=== PATIENT | female | born 1970 | race Caucasian/White ===

== ENCOUNTER 2016-08-09 09:29 | Emergency (ER) | payer SELFPAY ==
[~2016-08-09] VITALS: Ht 175.3 cm; Wt 66.4 kg
[2016-08-09 09:32] VITALS: BP 115/79; PULSE 78; RESP 15; TEMP 98.2; O2SAT 98
--- NOTE | 2016-08-09 09:56 | PD ---
HPI Chief Complaint: Flank/Kidney Pain Time Seen by Provider: 09:47 Travel History International Travel<30 days: No Contact w/Intl Traveler<30days: No Traveled to known affect area: No History of Present Illness HPI This is a 46-year-old female who presents to the emergency department with left- sided flank pain that's been present for 3 days associated with fevers and chills, constant, moderate severity. She also reports she's been waking up in the middle the night to use the bathroom and she feels like she has to go to the bathroom but doesn't produce much urine. She denies any nausea or vomiting. She's never had symptoms like this before. She is otherwise healthy. She does have a history of fibroids and thought it might be related to that. PFSH Past Medical History Medical History: Denies Significant Hx LMP: YESTERDAY. Social History Alcohol Use: Yes (2 drinks/day) Tobacco Use: Yes Substance Use: No Allergies-Medications (Allergen,Severity, Reaction): Coded Allergies: No Known Allergies (Unverified , 08/09/16) Reported Meds & Prescriptions Reported Meds & Active Scripts Active No Active Prescriptions or Reported Medications Review of Systems Except as stated in HPI: all other systems reviewed are Neg Physical Exam Narrative GENERAL:Well appearing, no acute distress SKIN: Focused skin assessment warm and dry. HEAD: Atraumatic. Normocephalic. EYES: Pupils equal and round. No injection or drainage. ENT: Moist mucous membranes NECK: Trachea midline. CARDIOVASCULAR: Regular rate and rhythm. No murmur appreciated. RESPIRATORY: Clear to auscultation. Breath sounds equal bilaterally. GASTROINTESTINAL: Abdomen soft, non-tender, tender to palpation in the left lower quadrant : Left CVA tenderness MUSCULOSKELETAL: No obvious deformities. NEUROLOGICAL: Awake and alert. No obvious cranial nerve deficits. Moving all extremities. PSYCHIATRIC: Appropriate mood and affect; insight and judgment normal. Data Data Last Documented VS Vital Signs Date Time Temp Pulse Resp B/P Pulse Ox O2 Delivery O2 Flow Rate FiO2 08/09/16 09:32 98.2 78 15 115/79 98 Orders Urinalysis - C+S If Indicated (08/09/16 09:35) Ed Urine Pregnancytest Poc (08/09/16 09:35) Complete Blood Count With Diff (08/09/16 09:47) Comprehensive Metabolic Panel (08/09/16 09:47) ^ Insert Iv (08/09/16 09:47) Sodium Chlor 0.9% 1000 Ml Inj (Ns 1000 M (08/09/16 10:00) Ciprofloxacin 400 Mg Premix (Cipro 400 M (08/09/16 10:30) Urine Culture (08/09/16 09:35) Labs Laboratory Tests Test 08/09/16 08/09/16 09:35 09:40 Urine Collection Type CLEAN CATCH Urine Color YELLOW Urine Turbidity MOD Urine pH 6.0 Urine Specific [place] 1.024 Urine Protein 100 mg/dL Urine Glucose (UA) NEG mg/dL Urine Ketones TRACE mg/dL Urine Occult Blood MOD Urine Nitrite NEG Urine Bilirubin NEG Urine Leukocyte Esterase LARGE Urine RBC 20-24 /hpf Urine WBC INNUM /hpf Urine WBC Clumps MANY Urine Squamous Epithelial 0-5 /hpf Cells Urine Bacteria FEW /hpf Microscopic Urinalysis Comment CULTURE INDICATED Urine Collection Time 09:35 White Blood Count 8.0 TH/MM3 Red Blood Count 4.15 MIL/MM3 Hemoglobin 13.1 GM/DL Hematocrit 38.9 % Mean Corpuscular Volume 93.9 FL Mean Corpuscular Hemoglobin 31.5 PG Mean Corpuscular Hemoglobin 33.5 % Concent Red Cell Distribution Width 13.9 % Platelet Count 206 TH/MM3 Mean Platelet Volume 8.4 FL Neutrophils (%) (Auto) 76.6 % Lymphocytes (%) (Auto) 10.9 % Monocytes (%) (Auto) 11.2 % Eosinophils (%) (Auto) 0.6 % Basophils (%) (Auto) 0.7 % Neutrophils # (Auto) 6.1 TH/MM3 Lymphocytes # (Auto) 0.9 TH/MM3 Monocytes # (Auto) 0.9 TH/MM3 Eosinophils # (Auto) 0.0 TH/MM3 Basophils # (Auto) 0.1 TH/MM3 CBC Comment DIFF FINAL Differential Comment Sodium Level 138 MEQ/L Potassium Level 3.7 MEQ/L Chloride Level 103 MEQ/L Carbon Dioxide Level 25.1 MEQ/L Anion Gap 10 MEQ/L Blood Urea Nitrogen 9 MG/DL Creatinine 0.99 MG/DL Estimat Glomerular Filtration 60 ML/MIN Rate Random Glucose 124 MG/DL Calcium Level 9.0 MG/DL Total Bilirubin 0.5 MG/DL Aspartate Amino Transf 11 U/L (AST/SGOT) Alanine Aminotransferase 16 U/L (ALT/SGPT) Alkaline Phosphatase 97 U/L Total Protein 7.7 GM/DL Albumin 3.1 GM/DL MDM Medical Decision Making Medical Screen Exam Complete: Yes Emergency Medical Condition: Yes Interpretation(s) Afebrile, no tachycardia, normotensive No leukocytosis Urinary tract infection Differential Diagnosis Pyelonephritis, urinary tract infection, nephrolithiasis Narrative Course This is a 46-year-old female who presents to the emergency department with left- sided flank pain, fevers and chills classic for pyelonephritis. Labs were obtained which demonstrated normal white blood cell count. She does have a urinary tract infection. She was given a dose of IV ciprofloxacin and will be discharged on Cipro. She doesn't have any insurance I tried to choose an antibiotic that she could afford. She is nontoxic appearing and appropriate for outpatient therapy. Diagnosis Primary Impression: Pyelonephritis Patient Instructions: General Instructions Additional Instructions: If you develop fever, persistent vomiting, back pain, or inability to eat return to the emergency department as your urine infection may have progressed to a kidney infection. Complete your antibiotics as prescribed. Stay well hydrated with Gatorade or water. Followup with your primary care physician in 2-3 days if your symptoms have not resolved. Med/Other Pt SpecificInfo: Prescription(s) given Scripts Ciprofloxacin 500 Mg [id number] Mg PO BID 7 Days Prov:Tracey Vasquez MD 08/09/16 Disposition: 01 DISCHARGE HOME Condition: Stable Tracey Vasquez MD August 09, 2016 09:56
[2016-08-09] MEDS ORDERED: SODIUM CHLOR 0.9% 1000 ML INJ 1,000 ML IV ONE (10:00)
[2016-08-09 10:05] LABS: BLOOD, URINE MOD (NEG); GLUCOSE,URINE NEG (NEG); KETONE, URINE TRACE mg/dL (NEG); NITRITE,URINE NEG (NEG)
[2016-08-09 10:08] LABS: AUTOMATED NEUTROPHIL # 6.1 TH/MM3 (1.8-7.7); BASOPHIL # 0.1 TH/MM3 (0-0.2); BASOPHIL % 0.7 % (0.0-2.0); EOSINOPHIL % 0.6 % (0.0-4.0); HEMATOCRIT 38.9 % (35.0-46.0); HEMO FLAGS DIFF FINAL; LYMPH % 10.9 % (9.0-44.0); LYMPHOCYTE # 0.9 TH/MM3 (1.0-4.8); MEAN CELL VOLUME 93.9 FL (80.0-100.0); MEAN CORPUSCULAR HEMOGLOBIN 31.5 PG (27.0-34.0); MEAN CORPUSCULAR HGB CONC 33.5 % (32.0-36.0); MONO % 11.2 % (0.0-8.0); NEUT % 76.6 % (16.0-70.0); PLATELET COUNT 206 TH/MM3 (150-450); RED BLOOD COUNT 4.15 MIL/MM3 (4.00-5.30); RED CELL DISTRIBUTION WIDTH 13.9 % (11.6-17.2)
[2016-08-09 10:12] LABS: METHOD OF COLLECTION CLEAN CATCH; URINE COLOR YELLOW (YELLW/STRAW); WBC, URINE INNUM /hpf (0-5)
[2016-08-09 10:13] LABS: BACTERIA, URINE FEW /hpf; SQUAMOUS EPITHELIAL CELL URINE 0-5 /hpf (0-5)
[2016-08-09 10:15] LABS: COMMENT (UR) CULTURE INDICATED; CULTURE IF INDICATED CULTURE INDICATED
[2016-08-09 10:19] LABS: CHLORIDE 103 MEQ/L (98-107); POTASSIUM 3.7 MEQ/L (3.5-5.1); SODIUM (NA) 138 MEQ/L (136-145)
[2016-08-09 10:22] LABS: ANION GAP 10 MEQ/L (5-15); BICARBONATE 25.1 MEQ/L (21.0-32.0)
[2016-08-09 10:23] LABS: BLOOD UREA NITROGEN 9 MG/DL (7-18)
[2016-08-09 10:25] LABS: ALT (GPT) 16 U/L (10-53)
[2016-08-09 10:26] LABS: AST (GOT) 11 U/L (15-37); GLOMERULAR FILTRATION RATE 60 ML/MIN (>89)
[2016-08-09 10:27] LABS: TOTAL BILIRUBIN ADULT 0.5 MG/DL (0.2-1.0)
[2016-08-09 10:28] LABS: ALKALINE PHOSPHATASE 97 U/L (45-117)
[2016-08-09] MEDS ORDERED: CIPROFLOXACIN 400 MG PREMIX 200 ML IV ONE (10:30)
[2016-08-09] MEDS ORDERED: CIPR500T2 PO (10:47)
[2016-08-09] MEDS ORDERED: KETOROLAC TROMETHAMINE 30 MG/ML (IVP) VIAL IV PUSH ONE (11:00)
[2016-08-09 11:52] VITALS: BP 97/67; PULSE 69; RESP 16; O2SAT 98
[2016-08-09 12:07] VITALS: RESP 16
== END 2016-08-09 12:09 | disposition home or self-care (01) ==
LOC: PHED 09:29
DX: N12 Tubulo-interstitial nephritis, not specified as acute or chronic (principal); N39.0 Urinary tract infection, site not specified; Z72.0 Tobacco use
CPT/HCPCS: 80053; 81001; 84703; 85025; 87077; 87086; 87186; 96361; 96365; 96375; 99284; J0744; J1885; J7030

== ENCOUNTER 2017-05-05 19:18 | Emergency (ER) | payer SELFPAY ==
[~2017-05-05] VITALS: Ht 175.3 cm; Wt 64.0 kg
[~2017-05-05 19:18] MED LIST: CIPR500T2 PO
[2017-05-05 19:24] VITALS: BP 115/67; PULSE 111; RESP 16; TEMP 98.3; O2SAT 95
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
[2017-05-05] MEDS ORDERED: TETANUS/DIPHTHERIA TOXOID ADULT 0.5 ML VIAL IM ONE (21:00)
[2017-05-05] MEDS ORDERED: ACETAMINOPHEN/HYDROcodone 325 MG/5 MG TAB PO ONE (21:00)
[2017-05-05] MEDS ORDERED: SILVER SULFADIAZINE 1% CR 400 GM JAR TOPICAL ONE (21:00)
[2017-05-05] MEDS ORDERED: KETOROLAC TROMETHAMINE 60 MG/2 ML (IM) VIAL IM ONE (21:00)
[2017-05-05] MEDS ORDERED: SILV1CRE20 TOPICAL (21:25)
[2017-05-05] MEDS ORDERED: IBUP-232 PO (21:25)
== END 2017-05-05 21:38 | disposition home or self-care (01) ==
LOC: PHEFT 19:18
DX: S71.101A Unspecified open wound, right thigh, initial encounter (principal); S60.522A Blister (nonthermal) of left hand, initial encounter; F10.929 Alcohol use, unspecified with intoxication, unspecified; V28.1XXA Motorcycle passenger injured in noncollision transport accident in nontraffic accident, initial encounter; Z23 Encounter for immunization
CPT/HCPCS: 12005; 90471; 90714; 99283; J1885